=== PATIENT | female | born 1985 | race Caucasian/White ===

== ENCOUNTER 2017-02-24 17:16 | Emergency (ER) | payer OTHER ==
[~2017-02-24] VITALS: Wt 83.9 kg
[2017-02-24] MEDS ORDERED: CLINDAMYCIN HC300 MG PO (17:42)
== END 2017-02-24 19:37 | disposition home or self-care (01) ==
LOC: ED 17:16
DX: L03.112 Cellulitis of left axilla (principal); F17.200 Nicotine dependence, unspecified, uncomplicated; Z88.2 Allergy status to sulfonamides